=== PATIENT | female | born 1980 | race Caucasian/White ===

== ENCOUNTER 2017-04-26 21:08 | Emergency (ER) | payer MEDICAID ==
[~2017-04-26] VITALS: Ht 162.6 cm; Wt 61.5 kg
[2017-04-26 21:16] VITALS: Ht 162.6 cm; Wt 61.5 kg
[2017-04-26] MEDS ORDERED: SOD CHLORIDE 0.9% 1,000 ML IV STA (22:59)
--- NOTE | 2017-04-26 23:14 | ERD ---
ER Documentation Chief Complaint Date/Time DATE: 04/26/17 TIME: 23:13 Chief Complaint weakness. dizziness x1 week HPI 37-year-old female presents to emergency department for complaints of weakness, dizziness, fatigability for the last one week. Patient has been having a history of chronic anemia, has heavy vaginal bleeding, patient's currently on ferrous sulfate. Patient was advised to come here in emergency department because her hemoglobin was much lower today, hemoglobin was 6.8 at the clinic. Patient denies any chest pain. Patient denies any vaginal bleeding at this time. Patient denies any pain. ROS All systems reviewed and are negative except as per history of present illness. Medications Home Meds Reported Medications [none] Unknown Strength No Conflict Check 04/26/17 Allergies Allergies: Coded Allergies: No Known Allergy (Unverified , 04/26/17) PMhx/Soc Medical and Surgical Hx: pt denies Medical Hx, pt denies Surgical Hx FmHx Family History: No coronary disease, No diabetes, No other Physical Exam Vitals Vital Signs Date Time Temp Pulse Resp B/P Pulse Ox O2 Delivery O2 Flow Rate FiO2 04/26/17 21:16 99.2 85 20 116/58 100 Physical Exam GENERAL: The patient is well developed and appropriate for usual state of health, in no apparent distress. CHEST: Clear to auscultation bilaterally. There are no rales, wheezes or rhonchi. HEART: Regular rate and rhythm. No murmurs, clicks, rubs or gallops. No S3 or S4. ABDOMEN: Soft, nontender and nondistended. Good bowel sounds. No rebound or guarding. No gross peritonitis. No gross organomegaly or masses. No Watson sign or McBurney point tenderness. BACK: No midline or flank tenderness. EXTREMITIES: Equal pulses bilaterally. There is no peripheral clubbing, cyanosis or edema. No focal swelling or erythema. Full range of motion. Grossly neurovascularly intact. NEURO: Alert and oriented. Cranial nerves 2-12 intact. Motor strength in all 4 extremities with 5/5 strength. Sensation grossly intact. Normal speech and gait. SKIN: There is no apparent rash or petechia. The skin is warm and dry. HEMATOLOGIC AND LYMPHATIC: There is no evidence of excessive bruising or lymphedema. No gross cervical, axillary, or inguinal lymphadenopathy. Result Diagram: 04/26/17 2340 Results 24 hrs Laboratory Tests Test 04/26/17 23:40 White Blood Count 10.210^3/ul Red Blood Count 4.4910^6/ul Hemoglobin 8.2g/dl Hematocrit 29.8% Mean Corpuscular Volume 66.4fl Mean Corpuscular Hemoglobin 18.3pg Mean Corpuscular Hemoglobin Concent 27.5g/dl Red Cell Distribution Width 24.7% Platelet Count 65976^3/UL Mean Platelet Volume 9.8fl Neutrophils % 63.2% Lymphocytes % 24.8% Monocytes % 10.0% Eosinophils % 1.3% Basophils % 0.5% Nucleated Red Blood Cells % 0.0/100WBC Neutrophils # 6.510^3/ul Lymphocytes # 2.510^3/ul Monocytes # 1.010^3/ul Eosinophils # 0.110^3/ul Basophils # 0.110^3/ul Nucleated Red Blood Cells # 0.010^3/ul Urine Color YELLOW Urine Clarity SLIGHTLY CLOUDY Urine pH 6.0 Urine Specific [place] 1.014 Urine Ketones NEGATIVEmg/dL Urine Nitrite NEGATIVEmg/dL Urine Bilirubin NEGATIVEmg/dL Urine Urobilinogen NEGATIVEmg/dL Urine Leukocyte Esterase NEGATIVELeu/ul Urine Microscopic RBC 0/HPF Urine Microscopic WBC 1/HPF Urine Squamous Epithelial Cells FEW/HPF Urine Hemoglobin NEGATIVEmg/dL Urine Glucose NEGATIVEmg/dL Urine Total Protein NEGATIVEmg/dl Beta HCG, Quantitative < 2.4mIU/ml Current Medications Medications (Trade) Dose Ordered Sig/Arlene Route PRN Reason Start Time Stop Time Status Last Admin Dose Admin Sodium Chloride (NS) 1,000 ml @ 1,000 mls/hr Q1H STAT IV 04/26/17 22:59 04/26/17 23:58 DC 04/26/17 23:44 Normal saline IV bolus was given here in emergency department for rehydration, patient tolerated IV fluids. PROCEDURE: US Pelvis. CLINICAL INDICATION: Vaginal bleeding. TECHNIQUE: The pelvis was evaluated with transabdominal sonography in the axial and sagittal planes. COMPARISON: No prior study is available for comparison. FINDINGS: Uterus: 8.2 x 4.4 x 6.3 cm. Endometrium: 9.7 mm. There is no intrauterine gestational sac. Right ovary: 3.1 x 2.0 x 2.3 cm. Left ovary: 3.2 x 2.3 x 2.2 cm. Uterine masses: None. Ovarian masses: None. Color Doppler and pulsed Doppler sonography demonstrate normal flow to the ovaries. Other pelvic masses: None. Free fluid: None. IMPRESSION: 1. Normal pelvic ultrasound. 2. If the patient has a positive test, ectopic gestation cannot be excluded. RPTAT: QQ .Cristian Negron MD, MD Date Time Electronically viewed and signed by .Cristian Negron MD, on 04/26/2017 23:30 .R/ CC: ALYSSA LIMON NP Procedures/MDM Medical Decision Making: Patients vaginal bleeding is most likely consistent dysfunctional uterine bleeding. Patient does not show any evidence of hypovolemic shock. Patients hemoglobin and hematocrit is stable. There is low suspicion for ectopic . ENRIQUE results show no uterine fibroid BetaHCG Quantitative is negative for There is no signs of symptoms of dehydration. There is low suspicion for sepsis. Patient appears well and is hemodynamically stable. Disposition: Home. Condition: Stable Continue Ferrous sulfate Instructions: Patient is advised to do bed rest, avoid heavy lifting, and avoid having sex until cleared by OB doctor. Patient is advised to follow up with OB doctor for further follow-up. Patient is advised that is symptoms are worst, severe bleeding, dizziness, severe abdominal pain, fever, worst signs and symptoms to return to the emergency department immediately. Departure Diagnosis: Primary Impression: Anemia Anemia type: iron deficiency Iron deficiency anemia type: chronic blood loss Qualified Code: D50.0 - Iron deficiency anemia due to chronic blood loss Additional Impression: Vaginal bleeding Condition: Stable Patient Instructions: Anemia, Iron Deficiency (Adult), Dysfunctional Uterine Bleeding Additional Instructions: Patient is advised to do bed rest, avoid heavy lifting, and avoid having sex until cleared by OB doctor. Patient is advised to follow up with OB doctor for further follow-up. Patient is advised that is symptoms are worst, severe bleeding, dizziness, severe abdominal pain, fever, worst signs and symptoms to return to the emergency department immediately. ALYSSA LIMON NP Apr 26, 2017 23:14
--- NOTE | 2017-04-26 23:30 | RADRPT ---
PROCEDURE: US Pelvis. CLINICAL INDICATION: Vaginal bleeding. TECHNIQUE: The pelvis was evaluated with transabdominal sonography in the axial and sagittal plane s. COMPARISON: No prior study is available for comparison. FINDINGS: Uterus: 8.2 x 4.4 x 6.3 cm. Endometrium: 9.7 mm. There is no intrauterine gestational sac. Right ovary: 3.1 x 2.0 x 2.3 cm. Left ovary: 3.2 x 2.3 x 2.2 cm. Uterine masses: None. Ovarian masses: None. Color Doppler and pulsed Doppler sonography demonstrate normal flow to the ova clarice. Other pelvic masses: None. Free fluid: None. IMPRESSION: 1. Normal pelvic ultrasound. 2. If the patient has a positive test, ectopic gestation cannot be excluded. RPTAT: QQ .Cristian Negron MD, Date Time Electronically viewed and signed by .Cristian Negron MD, on 04/26/2017 23:30 .R/
[2017-04-26 23:55] LABS: ABNORMAL IP MESSAGE 1; BASOPHIL # 0.1 10^3/ul (0.0-0.1); BASOPHILS % 0.5 % (0.0-2.0); EOSINOPHILS # 0.1 10^3/ul (0.0-0.5); EOSINOPHILS % 1.3 % (0.0-7.0); HEMATOCRIT 29.8 % (37.0-47.0); HEMOGLOBIN 8.2 g/dl (12.0-16.0); LYMPHOCYTES # 2.5 10^3/ul (0.8-2.9); LYMPHOCYTES % 24.8 % (15.0-51.0); MEAN CORPUSCULAR HEMOGLOBIN 18.3 pg (29.0-33.0); MEAN CORPUSCULAR HGB CONC 27.5 g/dl (32.0-37.0); MEAN CORPUSCULAR VOLUME 66.4 fl (82.0-101.0); MEAN PLATELET VOLUME 9.8 fl (7.4-10.4); NEUTROPHIL # 6.5 10^3/ul (1.6-7.5); NEUTROPHILS % 63.2 % (39.0-77.0); PLATELET COUNT 399 10^3/UL (140-415); RED BLOOD COUNT 4.49 10^6/ul (4.20-5.40); RED CELL DISTRIBUTION WIDTH 24.7 % (11.5-14.5); WHITE BLOOD COUNT 10.2 10^3/ul (4.8-10.8)
[2017-04-27 00:32] LABS: POSITIVE DIFF @See below
[2017-04-27 00:36] LABS: ADD UMIC NO; UR ASCORBIC ACID 40 mg/dL (NEGATIVE); UR BILIRUBIN (Dip) NEGATIVE (NEGATIVE); UR BLOOD (Dip) NEGATIVE (NEGATIVE); UR CLARITY SLIGHTLY CLOUDY (CLEAR); UR COLOR YELLOW (YELLOW); UR GLUCOSE (Dip) NEGATIVE (NEGATIVE); UR KETONES (Dip) NEGATIVE (NEGATIVE); UR LEUKOCYTE ESTERASE (Dip) NEGATIVE Leu/ul (NEGATIVE); UR NITRITE (Dip) NEGATIVE (NEGATIVE); UR RBC 0 /HPF (0-5); UR SPECIFIC GRAVITY (Dip) 1.014 (1.003-1.030); UR SQUAMOUS EPITHELIAL CELL FEW /HPF (FEW); UR TOTAL PROTEIN (Dip) NEGATIVE (NEGATIVE); UR UROBILINOGEN (Dip) NEGATIVE (NEGATIVE)
[2017-04-27 01:42] VITALS: BP 128/61; PULSE 78; RESP 20; TEMP 98.1
== END 2017-04-27 01:43 | disposition home or self-care (01) ==
LOC: FTE 21:08
DX: D50.0 Iron deficiency anemia secondary to blood loss (chronic) (principal); N93.9 Abnormal uterine and vaginal bleeding, unspecified; R10.2 Pelvic and perineal pain
CPT/HCPCS: 36415; 76856; 81001; 81003; 84702; 85025; 86850; 86900; 86901; J7030; Z7502

== ENCOUNTER 2017-07-13 11:50 | Emergency (ER) | payer MEDICAID ==
[~2017-07-13] VITALS: Ht 157.5 cm; Wt 60.5 kg
[2017-07-13 12:02] VITALS: Ht 157.5 cm; Wt 60.5 kg
[2017-07-13] MEDS ORDERED: DIPHTH/TET/ACEL PERTUSS (ADULT) 0.5 ML VIAL IM* ONE (13:00)
[2017-07-13] MEDS ORDERED: LIDOCAINE 1% (MDV) 20 ML INJ SC ONE (13:00)
--- NOTE | 2017-07-13 14:15 | RADRPT ---
PROCEDURE: XR Left Hand CLINICAL INDICATION: Middle finger crush injury TECHNIQUE: PA, oblique, and lateral radiographs were submitted. COMPARISON: None FINDINGS: Osseous structures: There is a comminuted fracture involving the tuft at the distal aspect of the di stal phalanx of the left middle finger. The remaining osseous elements appear intact. Joint spaces: are well maintained, with no significant spurring, erosion or joint effusion evident. Soft tissues: appear unremarkable. IMPRESSION: Comminuted fracture involving the tuft of the distal phalanx of the left middle finger. Physician Noel Date Time Electronically viewed and signed by Physician Noel on 07/13/2017 14:14 /
[2017-07-13] MEDS ORDERED: CEFAZOLIN 1 GM INJ IM ONE (15:00)
[2017-07-13] MEDS ORDERED: IBUP-1542 PO (15:02)
[2017-07-13] MEDS ORDERED: CEPH-443 PO (15:02)
--- NOTE | 2017-07-13 15:08 | ERD ---
ER Documentation Chief Complaint Chief Complaint SHUT CAR DOOR ON MIDDLE FINGER LT HAND W/ LACERATION HPI 37-year-old female patient with no significant past medical history presents to the ED complaining of a left hand finger laceration sustained earlier today. States that she was washing the car and accidentally closed the door on her left middle finger. Reports that she is right-handed. Denies any loss of sensation, loss of range of motion, decreased range of motion, fever, chills, weakness. Reports that she is not up-to-date with her tetanus vaccine. ROS All systems reviewed and are negative except as per history of present illness. Medications Home Meds Active Scripts Ibuprofen* (Motrin*) 600 Mg Tab, 600 MG PO Q6, #30 TAB take with food Prov:SHAY PEREZ PA-C 07/13/17 Cephalexin* (Keflex*) 500 Mg Capsule, 500 MG PO QID for 7 Days, CAP Prov:SHAY PEREZ PA-C 07/13/17 Reported Medications [none] Unknown Strength No Conflict Check 04/26/17 Allergies Allergies: Coded Allergies: No Known Allergy (Unverified , 04/26/17) PMhx/Soc Medical and Surgical Hx: pt denies Medical Hx, pt denies Surgical Hx History of Surgery: No Anesthesia Reaction: No Hx Neurological Disorder: No Hx Respiratory Disorders: No Hx Cardiac Disorders: No Hx Psychiatric Problems: No Hx Miscellaneous Medical Probl: Yes (CHRONIC ANEMIA) Hx Alcohol Use: No Hx Substance Use: No Hx Tobacco Use: No Smoking Status: Never smoker Physical Exam Vitals Vital Signs Date Time Temp Pulse Resp B/P Pulse Ox O2 Delivery O2 Flow Rate FiO2 07/13/17 12:02 98.2 80 16 115/68 98 Physical Exam Const: [id number], well-nourished. In no acute distress. Head: Atraumatic, normocephalic Eyes: Normal Conjunctiva without injection ENT: Normal external ear, nose and mouth. Neck: Full range of motion. No meningismus. Resp: Clear to auscultation bilaterally. No wheezing, rhonchi, rales, or crackles. No accessory muscle use. No retractions. Cardio: Regular rate and rhythm, no murmurs Skin: No petechiae or rashes Back: No midline tenderness. No CVA tenderness. Ext: No cyanosis, or edema. Cap refill less than 2 seconds. Distal pulses intact bilaterally. A 2.5 cm laceration across the volar aspect of patient's left hand of the left middle finger above the DIP slightly crossing the nail bed. Nail bed still intact. Edema noted at the tip of the finger. Ecchymosis noted at the tip of the finger. No deformities noted. No erythema. No purulent discharge. Neur: Awake and alert. Normal gait and coordination. Muscle strength 5/5. Sensation intact bilaterally. Psych: Normal Mood and Affect Results 24 hrs Current Medications Medications (Trade) Dose Ordered Sig/Arlene Route PRN Reason Start Time Stop Time Status Last Admin Dose Admin Lidocaine (Xylocaine 1% (Mdv) 20 ml) 20 ml ONCE ONCE SC 07/13/17 13:00 07/13/17 13:02 DC 07/13/17 13:11 Diphtheria/ Tetanus/Acell Pertussis (Adacel) 0.5 ml ONCE ONCE IM* 07/13/17 13:00 07/13/17 13:02 DC 07/13/17 13:13 Cefazolin Sodium (Ancef) 1 gm ONCE ONCE IM 07/13/17 15:00 07/13/17 15:02 DC 07/13/17 15:12 Procedures/MDM 37-year-old female patient with no significant past medical history is right- handed and sustained a crush injury to her left middle finger. Patient is afebrile nontoxic appearing. Patient has normal vital signs. Tetanus vaccine updated here in the ED. Patient given Ancef 1 gm here in the ED. Patient gave consent to clean and close the laceration. It was cleaned with Betadine and copiously irrigated. No foreign bodies or visualization of tendons or bony prominences. Full range of motion of DIP, PIP, MCP joints bilaterally. Three 5 -0 Ethilon sutures placed on left middle finger without difficulty. PROCEDURE: XR Left Hand CLINICAL INDICATION: Middle finger crush injury TECHNIQUE: PA, oblique, and lateral radiographs were submitted. COMPARISON: None FINDINGS: Osseous structures: There is a comminuted fracture involving the tuft at the distal aspect of the distal phalanx of the left middle finger. The remaining osseous elements appear intact. Joint spaces: are well maintained, with no significant spurring, erosion or joint effusion evident. Soft tissues: appear unremarkable. IMPRESSION: Comminuted fracture involving the tuft of the distal phalanx of the left middle finger. Patient is placed in a left middle finger metal splint. Patient sustained a communicated fracture involving the tuft of the distal phalanx of the left middle finger. Neurovascularly intact pre and post splint placement with good fit. Patient's extremity symptoms have stabilized while they have been evaluated in the department and are appropriate for outpatient follow up. No evidence of fractures, dislocations, compartment syndrome, neurologic injury, vascular injury, open joint, open fracture, tendon laceration, septic arthritis , osteomyelitis, DVT, foreign body, or other emergent conditions. Discharge medications: Ibuprofen, Keflex Follow up with primary care physician in 1-2 days for an orthopedic physician for further evaluation and treatment. Wound check in 2 days. Remove stitches in 7-10 days. Instructed patient to return to the ED sooner for any worsening symptoms. Patient's questions were answered. Patient understood and agreed with discharge plan. Patient discharged stable. Departure Diagnosis: Primary Impression: Finger injury Encounter type: initial encounter Laterality: left Qualified Code: S69.92XA - Injury of finger of left hand, initial encounter Condition: Stable Patient Instructions: Fracture, Finger (Open), Laceration, Hand Referrals: [facility] YOU HAVE RECEIVED A MEDICAL SCREENING EXAM AND THE RESULTS INDICATE THAT YOU DO NOT HAVE A CONDITION THAT REQUIRES URGENT TREATMENT IN THE EMERGENCY DEPARTMENT. FURTHER EVALUATION AND TREATMENT OF YOUR CONDITION CAN WAIT UNTIL YOU ARE SEEN IN YOUR DOCTORS OFFICE WITHIN THE NEXT 1-2 DAYS. IT IS YOUR RESPONSIBILITY TO MAKE AN APPOINTMENT FOR FOLOW-UP CARE. IF YOU HAVE A PRIMARY DOCTOR --you should call your primary doctor and schedule an appointment IF YOU DO NOT HAVE A PRIMARY DOCTOR YOU CAN CALL OUR PHYSICIAN REFERRAL HOTLINE AT IF YOU CAN NOT AFFORD TO SEE A PHYSICIAN YOU CAN CHOSE FROM THE FOLLOWING [facility] [address] [facility]. [facility] [address] [facility]. [facility] [address] [facility] [address] [facility]. [facility]. [facility]. [address] [facility]. [facility] YOU HAVE RECEIVED A MEDICAL SCREENING EXAM AND THE RESULTS INDICATE THAT YOU DO NOT HAVE A CONDITION THAT REQUIRES URGENT TREATMENT IN THE EMERGENCY DEPARTMENT. FURTHER EVALUATION AND TREATMENT OF YOUR CONDITION CAN WAIT UNTIL YOU ARE SEEN IN YOUR DOCTORS OFFICE WITHIN THE NEXT 1-2 DAYS. IT IS YOUR RESPONSIBILITY TO MAKE AN APPOINTMENT FOR FOLOW-UP CARE. IF YOU HAVE A PRIMARY DOCTOR --you should call your primary doctor and schedule and appointment IF YOU DO NOT HAVE A PRIMARY DOCTOR YOU CAN CALL OUR PHYSICIAN REFERRAL HOTLINE AT . IF YOU CAN NOT AFFORD TO SEE A PHYSICIAN YOU CAN CHOSE FROM THE FOLLOWING [facility] INSTITUTIONS: [facility] [address] [place] [address] [facility] [address] [place], [place] [id number] [place] [address] [address] [place] [address] [facility]CIALT[facility] Additional Instructions: Call your primary care doctor TOMORROW for an apppintment to obtain referral to see an orthopedic physician. See the doctor sooner or return here if your condition worsens before your appointment time. Follow up in 2 days in your clinic for wound check. Follow up with your physician to remove the stitches:For Face wounds 5-7 days.For Elsewhere on the body 7-10 days. SHAY PEREZ PA-C Jul 13, 2017 15:08
== END 2017-07-13 15:36 | disposition home or self-care (01) ==
LOC: FTE 11:50
DX: S61.213A Laceration without foreign body of left middle finger without damage to nail, initial encounter (principal); W23.0XXA Caught, crushed, jammed, or pinched between moving objects, initial encounter; Y92.9 Unspecified place or not applicable; Z23 Encounter for immunization
CPT/HCPCS: 12001; 73130; 90471; 90715; 96372; J0690; Z7502; Z7610